=== PATIENT | female | born 1995 | race Caucasian/White ===

== ENCOUNTER 2017-03-14 22:26 | Emergency (ER) | payer SELFPAY ==
[2017-03-14] MEDS ORDERED: Ibuprofen 200 MG TAB ONE (22:52)
[2017-03-14 23:56] LABS: Pregnancy Test - Urine (BHCG) Negative (Negative); Pregu Control Background? CLEAR/WHITE (CLR/WHITE); Pregu Control Bar Appear? YES (CONTROL BAR)
[2017-03-14 23:57] LABS: Bilirubin Negative (Negative); Blood, Urine Large (Negative); Clarity Slightly Cloudy (Clear); Glucose, Urine (Dipstick) Negative (Negative); Leukocyte Negative (Negative); Nitrite Negative (Negative); Protein, Urine (Dipstick) Trace mg/dL (Neg-Trace); Urobilinogen 0.2 mg/dL (0.2-1.0)
[2017-03-15 00:04] LABS: Bacteria/HPF 1+ HPF (None Seen); Squamous Epithelial 0-3 HPF (0-3); WBC/HPF 0-3 HPF (0-3)
== END 2017-03-15 00:07 | disposition home or self-care (01) ==
LOC: BURERS 22:26
DX: N94.6 Dysmenorrhea, unspecified (principal); F41.9 Anxiety disorder, unspecified; F32.9 Major depressive disorder, single episode, unspecified; F17.210 Nicotine dependence, cigarettes, uncomplicated
CPT/HCPCS: 81003; 81015; 81025; 99284

== ENCOUNTER 2021-07-22 13:21 | Emergency (ER) | payer OTHER, SELFPAY ==
[2021-07-22] MEDS ORDERED: Boostrix 0.5 ML (Tdap) VIAL ONE (14:08)
[2021-07-22] MEDS ORDERED: Acetaminophen 500 MG TAB ONE (14:08)
== END 2021-07-22 14:30 | disposition home or self-care (01) ==
LOC: BURERS 13:21
DX: S91.051A Open bite, right ankle, initial encounter (principal); F17.210 Nicotine dependence, cigarettes, uncomplicated; W54.0XXA Bitten by dog, initial encounter
CPT/HCPCS: 90471; 90715

== ENCOUNTER 2023-06-16 15:58 | Emergency (ER) | payer SELFPAY ==
[2023-06-16 16:57] LABS: #Basophils 0.1 thou/uL (0.0-0.2); #Lymphocytes 2.6 thou/uL (1.20-3.40); #Monocytes 0.5 thou/uL (0.11-0.59); #Neutrophils 7.6 thou/uL (1.40-6.50); %Basophils 0.6 % (0.0-1.0); %Eosinophils 0.3 % (0.0-10.0); %Lymphocytes 24.1 % (21.0-51.0); %Neutrophils 69.9 % (42.0-75.0); Hematocrit 45.2 % (36.0-47.0); Hemoglobin 14.9 g/dL (12.0-16.0); Mean Corpuscular Hemoglobin 31.8 pg (27.0-31.0); Mean Corpuscular Volume 96.2 fl (78.0-98.0); Mean Platelet Volume 8.5 fL (7.4-10.4); Platelet Count 370 10x3/uL (130-400); White Blood Cell (WBC) Count 10.8 10x3/uL (4.8-10.8)
[2023-06-16 17:13] LABS: Anion Gap 17 mmol/L (10-20); BUN (Urea Nitrogen) 7 mg/dL (7.0-18.7); Calc. Creatinine Clearance 0 mL/min (70-130); Carbon Dioxide 22 mmol/L (22-29); Chloride 106 mmol/L (98-107); Estimated GFR 110; Glucose 102 mg/dL (70-105); Potassium 3.8 mmol/L (3.5-5.1); Sodium 141 mmol/L (136-145)
[2023-06-16 17:31] LABS: Troponin I Less than 0.010 ng/mL (< 0.028)
== END 2023-06-16 17:48 | disposition home or self-care (01) ==
LOC: BURERS 15:58
DX: F41.1 Generalized anxiety disorder (principal); F17.210 Nicotine dependence, cigarettes, uncomplicated
CPT/HCPCS: 36415; 71045; 80048; 83735; 84443; 84484; 85025; 93005